=== PATIENT | male | born 2000 | race Hispanic/Latino ===

== ENCOUNTER 2020-01-31 09:21 | Emergency (ER) | payer OTHER, SELFPAY ==
[2020-02-01 11:36] LABS: SARS-CoV-2 MS2 Positive; SARS-CoV-2 N Gene Negative; SARS-CoV-2 S Gene Negative; SARS-CoV-2 by NAA Not Detected (NotDetected); SARS-CoV-2 orf1ab Negative
== END 2020-01-31 10:07 | disposition home or self-care (01) ==
LOC: ERS 09:21
DX: R50.9 Fever, unspecified (principal); R51.9 Headache, unspecified; R19.7 Diarrhea, unspecified; Z20.828 Contact with and (suspected) exposure to other viral communicable diseases
CPT/HCPCS: 87635; 99283; U0003

== ENCOUNTER 2021-10-31 17:14 | Emergency (ER) | payer OTHER, SELFPAY ==
[2021-10-31] MEDS ORDERED: Acetaminophen 500 MG TAB ONE (18:04)
[2021-10-31] MEDS ORDERED: Ketorolac Tromethamine 30 MG/ML VIAL ONE (18:04)
== END 2021-10-31 18:33 | disposition home or self-care (01) ==
LOC: ERS 17:14
DX: H60.92 Unspecified otitis externa, left ear (principal)
CPT/HCPCS: 96372; 99282; J1885